=== PATIENT | female | born 1970 | race Asian ===

== ENCOUNTER → 2016-12-11 | Outpatient (CLI) | payer BC ==
[~2016-12-11] MED LIST: CALC-445 PO; CALC0.5C17 PO; LEVO125T72 PO; ONDA4TAB10 PO
--- NOTE | 2016-12-11 17:03 | DIAGNOSTIC IMAGING REPORT ---
EXAMINATION: PELVIC ULTRASOUND (transabdominal and endovaginal scanning) CLINICAL HISTORY: Abnormal Pap smear IRREGULAR VAGINAL BLEEDING COMPARISON STUDY: None FINDINGS: The uterus measured 12.1 x 4.2 x 6.4 cm. There is a 1 cm fundal fibroid.. Subtle nabothian gland cysts were visualized. The endometrial stripe was somewhat heterogeneous measuring 12 mm in thickness. . The right ovary measured 36 x 27 x 20 mm. There is a 3 cm cyst without mural nodularity or septations.. The left ovary measured 19 x 11 x 23 mm.. There is no ultrasonographic evidence of ovarian torsion. It should be noted that ovarian torsion can be present with normal Doppler ultrasonographic findings. There was no evidence of pathologic free pelvic fluid. IMPRESSION: 1. 1 cm fundal fibroid 2. Heterogeneous endometrium containing a tiny cystic space. The endometrium measuring 12 mm in diameter 3. 3 cm right ovarian cyst/follicle. There was no mural nodularity or septations.. Electronically signed by: Vidal Harrell M.D. 12/11/2016 5:02 PM Dictated Date/Time: 12/11/2016 4:59 PM
== END | disposition home or self-care (01) ==
LOC: C.ULTR 15:32
PROVIDERS: ATTEND Nurse Practitioner
DX: D25.9 Leiomyoma of uterus, unspecified (principal)

== ENCOUNTER → 2017-05-07 | Outpatient (CLI) | payer BC ==
[~2017-05-07] MED LIST changes: +CALC0.5C PO; -CALC0.5C17 PO
[2017-05-07 10:30] LABS: THYROID STIMULATING HORMONE 0.119 uIu/ml (0.300-4.500)
--- NOTE | 2017-05-11 12:17 | CODING QUERY MEDICAL NECESSITY ---
SUPPORTING DIAGNOSIS NEEDED A supporting diagnosis is required for the test/procedure performed on this patient in order for us to be reimbursed by the patient's insurance. Please provide a supporting diagnosis for the following test/procedure listed below next to the test name along with your signature. *If there is no additional diagnosis for this patient that would support the following test/procedure please document that below next to the test/procedure. Test(s)/Procedure(s) that require a supporting diagnosis: * VITAMIN D, 25-HYDROXY DIAGNOSIS: Provider Signature: Date: Thank you Merari Hung [employer] Once completed, please kindly fax back to [phone] For questions please call [phone]
== END | disposition home or self-care (01) ==
LOC: C.LAB1850 09:14
PROVIDERS: ATTEND Physician Assistant
DX: E89.0 Postprocedural hypothyroidism (principal); E55.9 Vitamin D deficiency, unspecified

== ENCOUNTER → 2017-05-07 | Outpatient (CLI) | payer BC ==
--- NOTE | 2017-05-07 09:27 | DIAGNOSTIC IMAGING REPORT ---
PELVIC ULTRASOUND, TRANSABDOMINAL AND TRANSVAGINAL HISTORY: Follow-up OVARIAN CYST COMPARISON: Pelvic ultrasound 12/11/2016. FINDINGS: Uterus: 13.0 x 6.6 x 5.1 cm. There are few nabothian cysts again noted. There is again noted a 8 mm hypoechoic nodule within the fundus of the uterus. This favors a small fibroid. Endometrial stripe: Slightly heterogeneous and measures up to 1.3 cm in thickness. There is again noted a tiny cyst within the endometrium. Right ovary: Normal in size and demonstrates normal color flow. There is an 8 mm follicle/cyst within the right ovary. Left ovary: Normal in size and demonstrates normal color flow. There is a 2 cm cyst within the left ovary. Miscellaneous:No pelvic free fluid. IMPRESSION: 1. Small bilateral ovarian cysts. 2. There is again noted a heterogeneous endometrium containing a tiny cystic space. The endometrium measures 13 mm in thickness which is top normal for the patient's age. 3. An 8 mm fundal fibroid. Electronically signed by: Gabe Dotson M.D. 05/07/2017 9:25 AM Dictated Date/Time: 05/07/2017 9:19 AM
== END | disposition home or self-care (01) ==
LOC: C.ULTR 08:16
PROVIDERS: ATTEND Nurse Practitioner
DX: N83.201 Unspecified ovarian cyst, right side (principal); N83.202 Unspecified ovarian cyst, left side; N93.8 Other specified abnormal uterine and vaginal bleeding; D25.9 Leiomyoma of uterus, unspecified